=== PATIENT | male | born 1980 | race Caucasian/White ===

== ENCOUNTER 2017-11-13 18:23 | Emergency (ER) | payer OTHER, SELFPAY ==
--- NOTE | 2017-11-13 18:31 | DI.RAD.S_ITS ---
PROCEDURE: XR FINGER LT MIN 2V INDICATIONS: drill vs 3rd finger TECHNIQUE: AP hand, 2 views of the left third finger(s) acquired. COMPARISON: None. FINDINGS: Bones: No fractures or dislocations. No suspicious bony lesions. Soft tissues: No suspicious soft tissue calcifications. IMPRESSION: No acute radiographic findings. Pain persists, consider repeat imaging in 5-7 days to evaluate for occult fracture. Dictated by: Chelsi Chahal M.D. on 11/13/2017 at 19:15 Approved by: Chelsi Chahal M.D. on 11/13/2017 at 19:16
[2017-11-13 18:33] VITALS: BP 130/88; PULSE 80; RESP 13; TEMP 36.8; O2SAT 97
--- NOTE | 2017-11-13 19:46 | ED_ITS ---
HPI - Skin/Abscess/Foreign Bdy <TRACIE Hernandez - Last Filed: 11/13/17 22:31> General Chief complaint: Skin/Abscess/Foreign Body Stated complaint: LEFT HAND DRILL THREW MIDDLE FINGER Time Seen by Provider: 11/13/17 19:20 History of Present Illness HPI narrative: Healthy 37-year-old male here for complaint of pain into his left middle finger status post accidentally using a drill causing it to puncture the distal part of his left index finger. He denies any other injuries or concerns. Incident happened earlier today. He states that the drill bit was fairly dirty. 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 Related Data Previous Rx's Medication Instructions Recorded cephalexin [Keflex] 500 mg PO TID #15 cap 11/13/17 Allergies Allergy/AdvReac Type Severity Reaction Status Date / Time No Known Drug Allergies Allergy Verified 11/13/17 18:39 Review of Systems <TRACIE Hernandez - Last Filed: 11/13/17 22:31> Constitutional Denies chills, Denies fever(s), Denies lethargy and Denies weakness Eyes Denies change in vision, Denies eye discharge, Denies irritation and Denies loss of vision ENT Ears, Nose, Mouth, and Throat: Denies change in voice, Denies neck pain and Denies sore throat Cardiovascular Denies chest pain, Denies irregular heart rhythm, Denies lightheadedness, Denies palpitations, Denies dyspnea, Denies dyspnea on exertion and Denies orthopnea Respiratory Denies cough, Denies dyspnea, Denies dyspnea on exertion and Denies wheezing Gastrointestinal Gastrointestinal: Denies abdominal pain, Denies change in bowel habits, Denies diarrhea, Denies nausea and Denies vomiting Genitourinary Denies hematuria, Denies flank pain, Denies urinary incontinence and Denies urinary urgency Musculoskeletal Denies neck pain Comments: Accidental drill bit puncture to left middle finger Integumentary/Breasts Denies pruritus, Denies erythema, Denies rash and Denies wounds Neurologic Denies confusion, Denies loss of vision and Denies weakness Psychiatric Denies anxiety, Denies confusion, Denies depression, Denies homicidal ideation and Denies suicidal ideation Endocrine Denies palpitations Allergic/Immunologic Denies wheezing Exam <TRACIE Hernandez - Last Filed: 11/13/17 22:31> Initial Vital Signs Initial Vital Signs: Vital Signs Temperature 98.3 F 18 18:33 Pulse Rate 80 18 18:33 Respiratory Rate 13 18 18:33 Blood Pressure 130/88 H 18 18:33 Pulse Oximetry 97 11/13/17 18:33 Const General: cooperative and well developed Nutritional Appearance: well nourished Orientation: alert, awake, oriented x3 and not confused [facility] Mouth: oral mucosae normal and moist mucous membranes Eyes Conjunctivae: conjunctivae normal Sclera: sclerae normal Pupils: PERRL EOM: EOM intact bilaterally Resp Effort & Inspection: normal respiratory effort, able to speak in complete sentences, no respiratory distress and no use of accessory muscles Auscultation: clear to auscultation bilaterally, no rales, no rhonchi and no wheezes Cardio Rate: regular rate Rhythm: regular rhythm Heart Sounds: no click, no gallops, no murmurs and no rubs Skin General: no rashes or lesions noted, No jaundice and No petechiae Extrem Other: 2 mm puncture wound to the radial aspect of the left middle distal finger distal sensation is intact. Distal range of motion is intact. Distal cap refill less than 2 sec. <Pipe Curtis MD - Last Filed: 11/16/17 05:43> Initial Vital Signs Initial Vital Signs: Vital Signs Temperature 98.3 F 11/13/17 18:33 Pulse Rate 80 11/13/17 18:33 Respiratory Rate 13 11/13/17 18:33 Blood Pressure 130/88 H 18 18:33 Pulse Oximetry 97 11/13/17 18:33 Course <TRACIE Hernandez - Last Filed: 11/13/17 22:31> Orders Ordered: ED Orders 11/13/17 18:31 XR finger LT min 2V Stat Vital Signs - 8 hr 18 18:33 Temperature 98.3 F Pulse Rate 80 Respiratory Rate 13 Blood Pressure 130/88 H Pulse Oximetry 97 <Pipe Curtis MD - Last Filed: 11/16/17 05:43> Orders Ordered: ED Orders 11/13/17 18:31 XR finger LT min 2V Stat Vital Signs - 8 hr 11/13/17 18:33 Temperature 98.3 F Pulse Rate 80 Respiratory Rate 13 Blood Pressure 130/88 H Pulse Oximetry 97 MDM - Skin/Abscess/Foreign Bdy <TRACIE Hernandez - Last Filed: 11/13/17 22:31> Imaging Data finger: Radiologist's impression: PROCEDURE: XR FINGER LT MIN 2V INDICATIONS: drill vs 3rd finger TECHNIQUE: AP hand, 2 views of the left third finger(s) acquired. COMPARISON: None. FINDINGS: Bones: No fractures or dislocations. No suspicious bony lesions. Soft tissues: No suspicious soft tissue calcifications. IMPRESSION: No acute radiographic findings. Pain persists, consider repeat imaging in 5-7 days to evaluate for occult fracture. Dictated by: Chelsi Chahal M.D. on 11/13/2017 at 19:15 Approved by: Chelsi Chahal M.D. on 11/13/2017 at 19:16 [facility] Narrative Medical decision making narrative: X-ray of the left middle finger was obtained was negative for any bony involvement. Due to puncture wound and also dirty nature of the drill bit as expressed by the patient he is placed on Keflex to cover empirically for infection. [id number] Tylenol Motrin as needed for any discomfort. Follow up with primary care provider in the next few days for re-evaluation. Patient believes his tetanus is up-to-date so tetanus was not given in the emergency room today. For any worsening symptoms return to the emergency room. Discharge Plan Departure Patient Disposition: Home, Self-Care Clinical Impression: Puncture wound of finger, left Discharge Date/Time: 11/13/17 20:22 Interventions: ED Discharge Assessment Last Done: 11/13/17 20:22 Instructions: DI for Puncture Wound Activity Restrictions/Additional Instructions: Wound was irrigated today and dressed with bacitracin and a dressing. X-ray of the left middle finger was obtained was negative for any acute fractures or bony involvement. Due to puncture wound and also due to dirty drill bit you have placed on antibiotics to prevent infection use as directed. Use over-the- counter Tylenol or Motrin as needed for any discomfort. Follow up with her primary care provider later this week for re-evaluation. For any worsening symptoms return to the emergency room. Prescriptions: New cephalexin [Keflex] 500 mg capsule 500 mg PO TID Qty: 15 RF: 0 Referrals: [facility] [Provider Group] <Pipe Curtis MD - Last Filed: 11/16/17 05:43> Cosign ED Attending Cosignature Attestation: The PA/INTERNET [employer]IST functioned independently for the care of this pt, I was available, but not asked to participate in care. I am unable to determine appropriateness of management without personally examining the pt.
--- NOTE | 2017-11-13 20:22 | PC.NURSE ---
puncture to lt 3rd digit from drill bit, no bleeding present, distal cms intact
== END 2017-11-13 20:22 | disposition home or self-care (01) ==
PROVIDERS: Emergency Provider Nurse Practitioner Family
DX: S61.233A Puncture wound without foreign body of left middle finger without damage to nail, initial encounter (principal); W29.8XXA Contact with other powered hand tools and household machinery, initial encounter
CPT/HCPCS: 73140; 99283